=== PATIENT | male | born 1960 | race Caucasian/White ===

== ENCOUNTER 2020-04-03 00:44 | Emergency (ER) | payer SELFPAY ==
[~2020-04-03] VITALS: Ht 165.1 cm; Wt 73.0 kg
[2020-04-03] MEDS ORDERED: IBUPROFEN 600MG TABLET PO ONE (02:15)
[2020-04-03 02:43] LABS: CHLORIDE 89 mEq/L (98-107)
[2020-04-03 02:53] LABS: BASOPHILS % 0.2 % (0.0-2.0); HEMATOCRIT. 47.5 % (42.0-52.0); HEMOGLOBIN. 16.8 g/dL (14.0-18.0); LYMPHOCYTES % 11.5 % (20.0-50.0); MEAN CORPUSCULAR HEMOGLOBIN 30.9 pg (28.0-32.0); MEAN CORPUSCULAR VOLUME 87.1 fL (80.0-94.0); MEAN PLATELET VOLUME 8.7 fl (7.4-10.4); MONOCYTES % 11.4 % (2.0-8.0); NEUTROPHILS % 76.9 % (40.0-76.0); PLATELET 162 x1000/uL (130-400); RED BLOOD CELL COUNT 5.46 mill/uL (4.7-6.1); RED CELL DISTRIBUTION WIDTH 13.3 % (11.6-14.6)
[2020-04-03 03:33] VITALS: BP 129/81
[2020-04-03] MEDS ORDERED: SODIUM CHLORIDE 0.9% 1,000 ML IV ONE (03:35)
== END 2020-04-03 05:50 | disposition home or self-care (01) ==
LOC: ER 00:44
DX: B34.9 Viral infection, unspecified (principal)
CPT/HCPCS: 36415; 71045; 80053; 85025; 99284; J7030